=== PATIENT | female | born 2000 | race Caucasian/White ===

== ENCOUNTER 2021-03-04 04:45 | Emergency (ER) | payer SELFPAY ==
[2021-03-04] MEDS ORDERED: Ibuprofen 600 MG Tab PO ONE (05:21)
[2021-03-04] MEDS ORDERED: Acetaminophen/HYDROcodone 325-5 MG Tab PO ONE (05:21)
[2021-03-04] MEDS ORDERED: Ondansetron 4 MG Tab.DIS PO ONE (05:22)
--- NOTE | 2021-03-04 05:27 | EDM.PDOC ---
ED HPI GENERAL MEDICAL PROBLEM - General Chief Complaint: General Stated Complaint: [facility] Time Seen by Provider: 03/04/21 05:12 Source of Information: Reports: Patient History Limitations: Reports: No Limitations - History of Present Illness INITIAL COMMENTS - FREE TEXT/NARRATIVE: 20-year-old female presents to the ED per [facility] due to right hemifacial pain and initially she stated numbness and tingling. Very difficult to get an adequate history from this young lady. After period of time it becomes evident that she has pain in her right lower mandible posteriorly radiating towards her right ear and feeling of pain along her right mandible towards the mentum. She gives that the sensation of being numb and tingly but her sensation is intact. Denies any injuries to her face. No recent dental work. She has not appreciated any change in visual acuity but has pain when she clenches her teeth. No change in hearing. Onset: Gradual Onset Date: 03/01/21 (Offered right hemiface over the last 3 days gradually getting worse) Duration: Day(s):, Getting Worse Location: Reports: Face (And hemifacial pain and discomfort along the mandible rating towards her right ear and slightly down her right anterior neck) Quality: Reports: Ache, Pressure Severity: Moderate Improves with: Reports: None Worsens with: Reports: Other Context: Denies: Activity (Worse with trying to eat or chew on the right side of her face), Exercise, Lifting, Sick Contact, Trauma, Other Associated Symptoms: Denies: No Other Symptoms, Confusion, Chest Pain, Cough, cough w sputum, Diaphoresis, Fever/Chills, Headaches, Loss of Appetite, Malaise, Nausea/Vomiting, Seizure, Shortness of Breath, Syncope, Weakness 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: Other (see below) Right Ear Pain Score (Numeric/FACES): 8 - Related Data Allergies Allergy/AdvReac Type Severity Reaction Status Date / Time lavendar Allergy Cannot Uncoded 03/04/21 04:50 Remember Home Meds: Home Meds Hydrocodone/Acetaminophen [HYDROcodone-Acetaminophen 5-325 MG] 1 each PO Q6H PRN #12 tablet 03/04/21 [Rx] Past Medical History - Past Health History Medical/Surgical History: Denies Medical/Surgical History Social & Family History - Tobacco Use Tobacco Use Status *Q: Current Every Day Tobacco User Years of Tobacco use: 1 Packs/Tins Daily: 0.1 - Recreational Drug Use Recreational Drug Use: Yes Drug Use in Last 12 Months: Yes Recreational Drug Type: Reports: Marijuana/Hashish Recreational Drug Use Frequency: Socially - Living Situation & Occupation Living situation: Reports: Single Occupation: Unemployed ED ROS GENERAL - Review of Systems Review Of Systems: See Below Constitutional: Denies: Fever, Chills, Malaise, Weakness, Fatigue, Night Sweats, Diaphoresis, Decreased Appetite, Weight Loss, Weight Gain HEENT: Reports: Dental Pain (Sided dental pain far posterior right side lower), Ear Pain (Side), Other (Normal sensation right hemiface anterior to her ear and along her mandible to the mentum). Denies: Nose Pain, Rhinitis, Sinus Problem, Throat Pain Respiratory: Reports: No Symptoms Cardiovascular: Reports: No Symptoms Endocrine: Reports: No Symptoms GI/Abdominal: Reports: No Symptoms : Reports: No Symptoms Musculoskeletal: Reports: No Symptoms Skin: Reports: No Symptoms Neurological: Reports: No Symptoms Psychiatric: Reports: No Symptoms Hematologic/Lymphatic: Reports: No Symptoms Immunologic: Reports: No Symptoms ED EXAM, GENERAL - Physical Exam Exam: See Below Exam Limited By: No Limitations General Appearance: Alert, WD/WN, No Apparent Distress, Other (Temperature is mildly elevated at 37.7 although she does not feel warm to palpation. Heart rate was 85 and sinus respiratory to 16 with O2 sats of 90% room air. BP 128/90) Eye Exam: Bilateral Eye: Normal Fundi, Normal Inspection (No scleral icterus or blepharal pallor), PERRL, Other (Can close the eye tightly on the right side with no sign of ptosis or) Ears: Normal TMs ( Matute's palsy) Throat/Mouth: Other (It appears that her right lower third molar wisdom tooth is about three [address] erupted. The surrounding gingiva is tender and swollen and I believe is the source of her current pain and discomfort right hemiface. It appears the right upper wisdom tooth has been removed. I cannot be c) Course - Vital Signs Last Recorded V/S: Last Vital Signs Temp 37.7 C 03/04/21 04:48 Pulse 85 03/04/21 04:48 Resp 16 03/04/21 04:48 BP 128/90 03/04/21 04:48 Pulse Ox 98 03/04/21 04:48 - Orders/Labs/Meds Meds: Medications Discontinued Medications Generic Name Dose Route Start Last Admin Trade Name Freq PRN Reason Stop Dose Admin Hydrocodone Bitart/Acetaminophen 1 tab 03/04/21 05:21 03/04/21 05:31 Acetaminophen/Hydrocodone 325-5 Mg Tab PO 03/04/21 05:22 1 tab ONETIME ONE Administration Ibuprofen 600 mg 03/04/21 05:21 03/04/21 05:51 Ibuprofen 600 Mg Tab PO 03/04/21 05:22 Not Given ONETIME ONE Ondansetron HCl 4 mg 03/04/21 05:22 03/04/21 05:31 Ondansetron 4 Mg Tab.Dis PO 03/04/21 05:23 4 mg ONETIME ONE Administration Departure - Departure Time of Disposition: 06:00 Disposition: Home, Self-Care 01 Condition: Fair Clinical Impression: Pain, dental - Discharge Information *PRESCRIPTION DRUG MONITORING PROGRAM REVIEWED*: Not Applicable *COPY OF PRESCRIPTION DRUG MONITORING REPORT IN PATIENT GISEL: Not Applicable Prescriptions: Hydrocodone/Acetaminophen [HYDROcodone-Acetaminophen 5-325 MG] 1 each PO Q6H PRN #12 tablet PRN Reason: [place] tooth eruption Instructions: Acute Pain, Adult Referrals: PCP,None [Primary Care Provider] - Forms: ED Department Discharge Additional Instructions: Evaluation in the emergency room the morning of 2 right hemifacial pain rating towards her right ear and along her mandible or jaw bone gradually worsening o jarocho the last 3 to 4 days. Examination reveals that your right lower wisdom tooth her third molar is partially erupted about 70% at this time. I suspect it is putting pressure on the tooth in front of it as well as pressure on the surrounding soft tissues or gums causing pain in the right hemiface. No other abnormalities of the nerves in your face were identified. It appears that the right upper third molar tooth has been previously removed or excised. I cannot be certain about the left upper molar but I suspect it has been removed as well. Treatment is time for the tooth to fully erupted which can take sometimes a few more years. It will sometimes cause pain transiently for a week to 10 days go down and be good for 6 months before does it again. If it continues to give you persistent pain I would follow-up with a dentist to arrange for an oral surgeon to remove the tooth completely. 90% of people have the wisdom teeth removed. Treatment at this time is Motrin 600 mg every 6 hours to relieve pain and inflammation. Hydrocodone tablet 5/325 mg strength may be used 1 every 6 hours in addition to the Motrin if needed for persistent pain or pain that will not allow you to sleep at night. Pain pills should be taken with a little food in your stomach is on an empty stomach and may cause nausea. Expect gradual improvement over the next 6 to 8 days. Strongly suggest follow-up with dentist next week as planned. Sepsis Event Note (ED) - Evaluation Sepsis Screening Result: No Definite Risk - Focused Exam Vital Signs: Vital Signs Temp Pulse Resp BP Pulse Ox 03/04/21 04:48 37.7 C 85 16 128/90 98
== END 2021-03-04 06:10 | disposition home or self-care (01) ==
LOC: JD.ED 04:45
DX: K08.89 Other specified disorders of teeth and supporting structures (principal); Z91.09 Other allergy status, other than to drugs and biological substances; Z72.0 Tobacco use
CPT/HCPCS: 99284; A9270; 99283